=== PATIENT | male | born 1995 | race African-American/Black ===

== ENCOUNTER 2017-04-22 00:28 | Emergency (ER) | payer SELFPAY ==
[~2017-04-22] VITALS: Ht 180.3 cm; Wt 131.5 kg
[2017-04-22] MEDS ORDERED: AUD NEB (00:29)
[2017-04-22] MEDS ORDERED: ALBU8HFA IH (00:29)
[2017-04-22] MEDS ORDERED: ALBUTEROL SULFATE 2.5 MG/0.5 ML NEB SOLUTION NEB ONE ×2 (00:30→01:15)
[2017-04-22] MEDS ORDERED: IPRATROPIUM BROMIDE 0.5 MG/2.5 ML NEB SOLUTION NEB ONE (00:30)
[2017-04-22] MEDS ORDERED: PredniSONE 20 MG TABLET PO ONE (00:45)
[2017-04-22] MEDS ORDERED: 0.9% SODIUM CHLORIDE 5 ML NEB SOLUTION NEB ONE (01:18)
[2017-04-22 01:43] VITALS: BP 135/64
== END 2017-04-22 01:57 | disposition home or self-care (01) ==
LOC: EMS 00:29
DX: J45.909 Unspecified asthma, uncomplicated (principal); I10 Essential (primary) hypertension; F12.90 Cannabis use, unspecified, uncomplicated; Z87.891 Personal history of nicotine dependence
CPT/HCPCS: 94640; 99284; J7512; J7613